=== PATIENT | male | born 1945 | race Caucasian/White ===

== ENCOUNTER 2019-04-13 07:46 | Emergency (ER) | payer MEDICARE, BC ==
--- NOTE | 2019-04-13 08:25 | EDM.PDOC ---
ED HPI GENERAL MEDICAL PROBLEM - General Chief Complaint: General Stated Complaint: HEMATURIA Time Seen by Provider: 04/13/19 08:19 Source of Information: Reports: Patient History Limitations: Reports: No Limitations - History of Present Illness Onset: Gradual Onset Date: 04/12/19 Onset Time: 14:00 Duration: Day(s): Quality: Reports: Burning (Mild) Severity: Mild Improves with: Reports: None Worsens with: Reports: None Context: Denies: Trauma Associated Symptoms: Reports: No Other Symptoms. Denies: Chest Pain, Diaphoresis, Fever/Chills, Malaise, Nausea/Vomiting, Shortness of Breath, Weakness - Related Data Allergies Allergy/AdvReac Type Severity Reaction Status Date / Time No Known Allergies Allergy Verified 04/13/19 07:53 Home Meds: Home Meds Celecoxib 200 mg PO DAILY 04/13/19 [History] Lisinopril 2.5 mg PO DAILY 04/13/19 [History] Multivitamin [Multi-Day Vitamins] 1 each PO DAILY 04/13/19 [History] Social & Family History - Tobacco Use Smoking Status *Q: Former Smoker Used Tobacco, but Quit: Yes Month/Year Tobacco Last Used: quit 40 yrs ago Second Hand Smoke Exposure: No - Caffeine Use Caffeine Use: Reports: Coffee, Soda - Recreational Drug Use Recreational Drug Use: No ED ROS GENERAL - Review of Systems Review Of Systems: ROS reveals no pertinent complaints other than HPI. Constitutional: Reports: No Symptoms HEENT: Reports: No Symptoms Respiratory: Reports: No Symptoms Cardiovascular: Reports: No Symptoms Endocrine: Reports: No Symptoms GI/Abdominal: Reports: No Symptoms. Denies: Abdominal Pain, Bloody Stool : Reports: Dysuria, Hematuria. Denies: Discharge, Flank Pain Musculoskeletal: Reports: No Symptoms Skin: Reports: No Symptoms Neurological: Reports: No Symptoms Psychiatric: Reports: No Symptoms Hematologic/Lymphatic: Reports: No Symptoms Immunologic: Reports: No Symptoms ED EXAM, GENERAL - Physical Exam Exam: See Below Exam Limited By: No Limitations General Appearance: Alert, WD/WN, No Apparent Distress Throat/Mouth: Normal Inspection, Normal Oropharynx, No Airway Compromise Head: Atraumatic, Normocephalic Neck: Normal Inspection Respiratory/Chest: No Respiratory Distress, Lungs Clear, Normal Breath Sounds, No Accessory Muscle Use, Chest Non-Tender Cardiovascular: Normal Peripheral Pulses, Regular Rate, Rhythm, No Murmur GI/Abdominal: Normal Bowel Sounds, Soft, Non-Tender, No Organomegaly, No Distention, No Abnormal Bruit, No Mass (Male) Exam: No Hernia, Normal Inspection, Circumcised Back Exam: Normal Inspection. No: CVA Tenderness (L), CVA Tenderness (R) Extremities: Normal Inspection, Normal Range of Motion, Non-Tender, No Pedal Edema Neurological: Alert, Oriented, Normal Cognition Psychiatric: Normal Affect, Normal Mood Skin Exam: Warm, Dry, Intact, Normal Color, No Rash Lymphatic: No Adenopathy Course - Vital Signs Last Recorded V/S: Last Vital Signs Temp 98.0 F 04/13/19 07:49 Pulse 101 H 04/13/19 07:49 Resp 18 04/13/19 07:49 BP 175/102 H 04/13/19 07:49 Pulse Ox 95 04/13/19 07:49 - Orders/Labs/Meds Orders: Active Orders 24 hr Category Date Time Status CULTURE URINE [RM] Stat Lab 04/13/19 07:45 Received Labs: Laboratory Tests 04/13/19 04/13/19 04/13/19 Range/Units 07:45 08:00 08:00 WBC 13.76 H (5.00-10.00) 10^3/uL RBC 5.05 (4.50-6.00) 10^6/uL Hgb 15.8 (13.0-17.0) g/dL Hct 46.7 (40.0-52.0) % MCV 92.5 H (82.0-92.0) fL MCH 31.3 H (27.0-31.0) pg MCHC 33.8 (32.0-36.0) g/dL RDW 13.0 (11.5-14.5) % Plt Count 313 (150-400) 10^3/uL MPV 9.8 (7.4-10.4) fL Immature Gran % (Auto) 0.1 (0.0-5.0) % Neut % (Auto) 86.8 H (50.0-70.0) % Lymph % (Auto) 6.3 L (20.0-40.0) % [place] % (Auto) 5.8 (2.0-8.0) % Eos % (Auto) 0.9 L (1.0-3.0) % Baso % (Auto) 0.1 (0.0-1.0) % Immature Gran # (Auto) 0.01 (0.00-0.50) 10^3/uL Neut # (Auto) 11.94 H (2.50-7.00) 10^3/uL Lymph # (Auto) 0.86 L (1.00-4.00) 10^3/uL [place] # (Auto) 0.80 (0.10-0.80) 10^3/uL Eos # (Auto) 0.13 (0.10-0.30) 10^3/uL Baso # (Auto) 0.02 (0.00-0.10) 10^3/uL Sodium 140 (136-145) mmol/L Potassium 4.6 (3.3-5.3) mmol/L Chloride 103 (98-115) mmol/L Carbon Dioxide 26.7 (21.0-32.0) mmol/L Anion Gap 14.9 (5-15) mmol/L BUN 19 (6-25) mg/dL Creatinine 1.07 (0.51-1.17) mg/dL Est Cr Clr Drug Dosing 56.63 mL/min Estimated GFR (MDRD) > 60 mL/min Glucose 115 H (75 - 99) mg/dL Calcium 9.5 (8.7-10.3) mg/dL Total Bilirubin 1.7 H (0.2-1.0) mg/dL AST 16 (15-37) U/L ALT 29 (12-78) U/L Alkaline Phosphatase 84 (46-116) IU/L Total Protein 7.7 (6.4-8.2) g/dL Albumin 4.03 (3.00-4.80) g/dL Specimen Type Urincc Urine Color Red H (YELLOW) Urine Appearance Turbid H (CLEAR) Urine pH 7.0 (5.0-9.0) Ur Specific [place] 1.010 (1.005-1.030) Urine Protein >=300 H (NEGATIVE) mg/dL Urine Glucose (UA) Negative (NEGATIVE) mg/dL Urine Ketones Negative (NEGATIVE) mg/dL Urine Occult Blood Large H (NEGATIVE) Urine Nitrite Negative (NEGATIVE) Urine Bilirubin Negative (NEGATIVE) Urine Urobilinogen 0.2 (0.2-1.0) E.U./dL Ur Leukocyte Esterase Trace H (NEGATIVE) Urine RBC Packed (0-5) /HPF Urine WBC 0-5 (0-5) /HPF Ur Epithelial Cells Rare /LPF Urine Bacteria Few (NONE TO FEW) /HPF Meds: Medications Discontinued Medications Generic Name Dose Route Start Last Admin Trade Name Viviane PRN Reason Stop Dose Admin Lisinopril 10 mg 04/13/19 08:26 Prinivil PO 04/13/19 08:27 ONETIME ONE - Re-Assessments/Exams Free Text/Narrative Re-Assessment/Exam: 04/13/19 08:38 Patient afebrile, hypertensive, nontoxic appearing, denies headache, shortness of breath, or chest pain. Patient did not take his blood pressure medicine for the past 3 days, so given 10 mg lisinopril in the ER. Patient did have a TURP performed approximately 3 weeks ago. Typical status post procedure has occasional hematuria 2-4 weeks after. Patient will monitor amount of hematuria and return to emergency department if symptoms worsen. Patient will contact his urologist today for follow-up and follow-up with his PCP in the interim. 04/13/19 08:41 Departure - Departure Time of Disposition: 08:42 Disposition: Home, Self-Care 01 Condition: Good Clinical Impression: Status post recent transurethral resection of prostate Hematuria Qualifiers: Hematuria type: unspecified type Qualified Code(s): R31.9 - Hematuria, unspecified Hypertension Qualifiers: Hypertension type: essential hypertension Qualified Code(s): I10 - Essential ( primary) hypertension - Discharge Information Instructions: How to Take Your Blood Pressure, Transurethral Resection of the Prostate, Care After, How to Take Your Blood Pressure, [id number], Hypertension, [id number], Hematuria, Adult Referrals: Huma Miller INSERTING MACHINE OPERATOR [Primary Care Provider] - Forms: ED Department Discharge Additional Instructions: Follow-up at the [facility] in the next 1-2 days. Contact urologist for follow-up. Take blood pressure medicine as directed. Return to emergency department if symptoms continue or worsen. - My Orders Last 24 Hours: My Active Orders 04/13/19 07:45 CULTURE URINE [RM] Stat - Assessment/Plan Last 24 Hours: My Active Orders 04/13/19 07:45 CULTURE URINE [RM] Stat Assessment:: Hematuria Plan: Follow-up with PCP
[2019-04-13 08:31] LABS: ANION GAP 14.9 mmol/L (5-15); CHLORIDE,CL 103 mmol/L (98-115); SODIUM,NA 140 mmol/L (136-145)
[2019-04-13] MEDS: Lisinopril 10 MG Tab PO ONE (08:38)
== END 2019-04-13 08:51 | disposition home or self-care (01) ==
LOC: KA.ED 07:46
DX: R31.9 Hematuria, unspecified (principal); I10 Essential (primary) hypertension; Z79.899 Other long term (current) drug therapy; Z87.891 Personal history of nicotine dependence; Z90.79 Acquired absence of other genital organ(s)
CPT/HCPCS: 36415; 80053; 81001; 85025; 87086; 99283; A9270-GY

== ENCOUNTER 2023-01-04 15:08 | Emergency (ER) | payer MEDICARE, BC ==
[2023-01-04] MEDS ORDERED: Sodium Chloride 0.9% 10 ML Syringe FLUSH PRN (15:17)
[2023-01-04 15:24] LABS: BASOPHILS ABSOLUTE AUTO 0.04 10^3/uL (0.00-0.10); BASOPHILS PERCENT AUTO 0.4 % (0.0-1.0); EOSINOPHILS PERCENT AUTO 2.1 % (1.0-3.0); HEMATOCRIT 38.5 % (40.0-52.0); HEMOGLOBIN 12.8 g/dL (13.0-17.0); IMMATURE GRAN ABSOLUTE AUTO 0.02 10^3/uL (0.00-0.50); IMMATURE GRAN PERCENT AUTO 0.2 % (0.0-5.0); LYMPHOCYTES ABSOLUTE AUTO 1.54 10^3/uL (1.00-4.00); LYMPHOCYTES PERCENT AUTO 15.9 % (20.0-40.0); MEAN CORPUSCULAR HEMOGLOBIN 30.6 pg (27.0-31.0); MEAN CORPUSCULAR HGB CONC 33.2 g/dL (32.0-36.0); MEAN CORPUSCULAR VOLUME 92.1 fL (82.0-92.0); MONOCYTES ABSOLUTE AUTO 0.76 10^3/uL (0.10-0.80); MONOCYTES PERCENT AUTO 7.8 % (2.0-8.0); NEUTROPHILS ABSOLUTE AUTO 7.14 10^3/uL (2.50-7.00); NEUTROPHILS PERCENT AUTO 73.6 % (50.0-70.0); PLATELET COUNT,PLT 249 10^3/uL (150-400); RED BLOOD CELL COUNT 4.18 10^6/uL (4.50-6.00); RED CELL DISTRIBUTION WIDTH 13.1 % (11.5-14.5)
[2023-01-04 15:45] LABS: ALBUMIN 3.11 g/dL (3.40-5.00); ANION GAP 14.8 mmol/L (5-15); BILIRUBIN TOTAL 0.7 mg/dL (0.2-1.0); CALCIUM 8.6 mg/dL (8.7-10.3); CARBON DIOXIDE,CO2 23.7 mmol/L (21.0-32.0); CREATININE 1.09 mg/dL (0.51-1.17); EST CRCL DRUG DOSING (CG) 52.22 mL/min; POTASSIUM,K 4.5 mmol/L (3.5-5.1); PROTEIN TOTAL,TP 6.4 g/dL (6.4-8.2)
[2023-01-04 16:23] LABS: PROTHROMBIN TIME 10.1 SEC (9.2-11.2); PTT,PARTIAL THROMBOPLSTIN TIME 22.2 SEC (22.8-31.4)
[2023-01-04 18:39] VITALS: BP 131/75; PULSE 60
== END 2023-01-04 15:58 ==
LOC: KA.ED 15:08
DX: R29.810 Facial weakness (principal); G23.8 Other specified degenerative diseases of basal ganglia; E78.00 Pure hypercholesterolemia, unspecified; I10 Essential (primary) hypertension; Z79.899 Other long term (current) drug therapy
CPT/HCPCS: 36415; 70450; 71045; 80053; 84484; 85025; 85610; 85730; 93005; 99285